=== PATIENT | female | born 1995 | race Caucasian/White ===

== ENCOUNTER 2020-08-13 20:02 | Emergency (ER) | payer OTHER, SELFPAY ==
--- NOTE | 2020-08-13 | XR_ITS ---
EXAMINATION: XR ANKLE, LEFT CLINICAL INFORMATION: Pain status post injury COMPARISON: None TECHNIQUE: AP and lateral views of the left ankle including a portable cross table view FINDINGS: Images slightly limited as the lateral aspect of the distal fibula and hindfoot are outside the [id number]. There are fractures of the distal diaphysis of the tibia and fibula in the tibia there is an oblique fracture beginning 11 cm proximal to the tibial talar joint resulting in approximately 33 degrees of apex medial angulation and with almost 50% shaft's width anterior displacement of the distal fragment. The fracture gap measures up to 1 cm. There is minimal if any overriding of the fracture fragments. There is a small nondisplaced fracture line extending proximally from the level of the dominant oblique fracture. There is a transverse slightly oblique fracture of the distal diaphysis of the fibula with full shaft's width lateral displacement of distal fragment and proximal displacement of the distal fragment resulting in approximately 1.2 cm of overriding. There is also apex medial angulation of approximately 31 degrees. XR/XR ankle LT 2V IMPRESSION: Displaced and angulated distal diaphyseal tibia and fibular fractures
[2020-08-13 20:08] VITALS: BP 152/79; PULSE 69; RESP 16; TEMP 37.2; O2SAT 97; BMI 26.4
--- NOTE | 2020-08-13 20:22 | PC.NURSE ---
PT TAKEN TO US VIA W/C AND HOSPITALIST IN TO SEE PT AND SHE WILL BE ADMITTED FOR IV ANTIBIOTICS.
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
[2020-08-13] MEDS: LORazepam 1 MG TABLET PO (20:47)
--- NOTE | 2020-08-13 21:07 | XR_ITS ---
EXAMINATION: XR ANKLE, LEFT CLINICAL INFORMATION: Post reduction. COMPARISON: 08/13/2020, 8:26 PM TECHNIQUE: 2 views of the left ankle. FINDINGS: Status post reduction. Extremity in an orthopedic dressing/cast. Oblique fracture of the distal tibial diaphysis, with improved alignment with persistent apex medial angulation of approximately 9 degrees. Mild anterior dislocation of the distal fragment, improved from previous. Oblique fracture of the distal fibular diaphysis, with lateral displacement by a full shaft width. Improved angulation with apex medial angulation measuring approximately 9 degrees. XR/XR ankle LT 2V IMPRESSION: Status post reduction. Displaced and angulated distal tibial and fibular diaphyseal fractures, improved from previous.
--- NOTE | 2020-08-13 21:35 | PC.NURSE ---
PT LEFT TIBIA AND FIBULAE FX REDUCED AT BEDSIDE PER DR [facility] WITH SUGAR TONE PLACED TO LEFT LEG.
[2020-08-13] MEDS: Lidocaine HCl 1 % 20 ML VIAL SUBCUT (21:41)
--- NOTE | 2020-08-13 21:41 | PC.NURSE ---
LIDOCAINE GIVEN 20ML IN 4 JOSE OF 5ML EACH EQUALING 20ML
== END 2020-08-13 22:25 | disposition home or self-care (01) ==
PROVIDERS: Emergency Provider Emergency Medicine
DX: S82.202A Unspecified fracture of shaft of left tibia, initial encounter for closed fracture (principal); M25.572 Pain in left ankle and joints of left foot; V03.90XA Pedestrian on foot injured in collision with car, pick-up truck or van, unspecified whether traffic or nontraffic accident, initial encounter; Y92.410 Unspecified street and highway as the place of occurrence of the external cause; Y99.9 Unspecified external cause status
CPT/HCPCS: 29515; 73600; 99284

== ENCOUNTER 2020-08-18 11:14 | Outpatient (REF) | payer OTHER, SELFPAY ==
--- NOTE | 2020-08-18 11:25 | XR_ITS ---
EXAMINATION: XR TIBIA AND FIBULA, LEFT CLINICAL INFORMATION: Left tibia and fibula fractures. COMPARISON: 08/13/2020 left ankle radiographs. TECHNIQUE: AP and lateral views of the left tibia and fibula were obtained. FINDINGS: An overlying cast obscures osseous detail. Again seen are mildly angulated and displaced distal tibial and fibular diaphysis fractures. The left knee and ankle joints are unremarkable. There is moderate soft tissue swelling. XR/XR tibia fibula LT 2V IMPRESSION: Mildly angulated and displaced distal tibial and fibular diaphysis fractures without significant interval change.
== END 2020-08-18 11:15 | disposition home or self-care (01) ==
LOC: HO.HOSX 11:14
PROVIDERS: PCP Internal Medicine; Visit Provider Orthopaedic Surgery
DX: M79.605 Pain in left leg (principal)
CPT/HCPCS: 73590; 99202

== ENCOUNTER 2020-08-23 08:31 | Day surgery (SDC) | payer OTHER, SELFPAY ==
[2020-08-23] VITALS (14 sets, daily range): BP systolic 118–141; BP diastolic 71–91; PULSE 92–144; RESP 16–20; TEMP 36.1–36.9; O2SAT 95–99; BMI 26.4
--- NOTE | 2020-08-23 07:44 | FL_ITS ---
EXAMINATION: XR FLUOROSCOPY WITH IMAGES CLINICAL INFORMATION: Tibial nailing. COMPARISON: None. TECHNIQUE: Fluoroscopy performed by Dr. Quique Radford. Fluoroscopy time: 3.3 minutes DAP: 0.166 mGycm2 Images: 6 FINDINGS: The tibial shaft fracture is reduced with intramedullary eddie and proximal and distal interlocking screws. There is near-anatomic alignment. Hardware is intact. No dislocation. Fibular shaft fracture displacement is improved with only minor lateral displacement distal fragment. FL/FL guidance in OR IMPRESSION: Status post reduction fractures lower leg.
--- NOTE | 2020-08-23 09:02 | P.CONAN_ITS ---
HPI - Anesthesia Eval Consult details Narrative: 25 F p/w distal tibial fracture PMFSH Past Medical History Medical History Anxiety Depression Social History Social History Alcohol intake: never Smoking Status: Never smoker Use of substances other than those prescribed or required for medical reasons: No Advance Directives: No Advance Directives Information Provided: No Current occupational status: employed Current occupation: [employer] - Left handed Meds Allergies Allergy/AdvReac Type Severity Reaction Status Date / Time No Known Allergies Allergy Verified 08/13/20 20:15 [No Known Allergies*] Home Medications Medication Instructions Recorded Confirmed Type acetaminophen 325 mg capsule 325 mg PO QID PRN 08/18/20 History Exam Exam Date and Time: August 23, 2020901 Height,Weight and Vital Signs: Height 5 ft Weight 61.235 kg Airway Mallampati Class: I TM Dist: >3cm Neck ROM: Full Loose/Missing/Broken Teeth: No Heart: RRR Lungs: NL Other: AO Assessment and Plan Assessment Anesthesia Assessment: Anesthesia Plan Discussed Final Anesthetic Review NPO: Yes ASA Class: I Final Preanesthetic Review: No Changes in Pt Med Stat, Meds/Allgs Chart Reviewed, Consent Obtained/Reviewed and Anes Risks/Benef Reviewed Patient Risk: Low Procedure Risk: Low Anesthetic Plan Anesthetic Plan: GA and Regional Block (Distal tibial, possible open fixation, low risk of compartment syndrome) Disposition: Standard PACU
--- NOTE | 2020-08-23 09:08 | MHC.SHP ---
Pre-Procedural Eval Section A The patient is an INPATIENT: No Changes since office visit: No Cold of Flu in the past 2 weeks, No New Medical Problems, No Changes in Medication and No Patient answered all questions The History & Physical has been completed within 30 days and I have reviewed it.: Yes Section B Chief Complaint: Fracture of Left Tibia Allergies: Allergies Allergy/AdvReac Type Severity Reaction Status Date / Time No Known Allergies Allergy Verified 08/13/20 20:15 [No Known Allergies*] Plan I have reviewed the history and physical and performed a pertinent physical examination on my patient. No changes have occurred unless specified.
[2020-08-23] MEDS: ceFAZolin Sodium/Dextrose,Iso 2 GM/50 ML PIGGYBACK IV ×2 (09:55→16:43)
[2020-08-23 10:02] LABS: UPreg QC Valid YES; Urine Pregnancy NEGATIVE (NEGATIVE)
--- NOTE | 2020-08-23 12:10 | PM.PRCOR ---
Brief Operative Note Date of procedure: 08/23/20 Pre-op diagnosis: fractured left distal tibia/ fibula Post-op diagnosis: same Procedure: operative fixation left tibia with locked im nail Anesthesia: regional Surgeon: Quique Radford Estimated blood loss (mL): 50 Pathology: none sent Condition: stable Disposition: PACU
[2020-08-23] MEDS: LORazepam 2 MG/ML VIAL 0.5 MG IVPUSH (12:31)
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
[2020-08-23] MEDS: Acetaminophen 325 MG TABLET 650 MG PO ×2 (16:42→22:24)
[2020-08-23] MEDS: oxyCODONE HCl Immed Release 5 MG TABLET PO (16:42)
[2020-08-23] MEDS: Ketorolac Tromethamine 15 MG/ML VIAL IVPUSH ×2 (16:43→22:24)
[2020-08-23] MEDS: 0.9 % Sodium Chloride Flush 3 ML SYRINGE IVFLUSH (16:44)
[2020-08-23] MEDS: ondansetron HCL 4 MG/2 ML VIAL IVPUSH (17:56)
--- NOTE | 2020-08-23 22:34 | PC.NURSE ---
Late entry: Around 1800 patient was noted to be not feeling well. Pt stated she was nauseous and vomited x 1. Zofran was administered and pt vomited one more time after administration. Pt currently is without nausea and vomiting and stated she is feeling better.
--- NOTE | 2020-08-23 23:02 | PC.NURSE ---
pt voided 600ml. Bladder scan with a result of 167.
[2020-08-24] MEDS: oxyCODONE HCl Immed Release 5 MG TABLET PO ×3 (00:27→12:52)
[2020-08-24] MEDS: 0.9 % Sodium Chloride Flush 3 ML SYRINGE IVFLUSH ×2 (00:28→07:15)
[2020-08-24] MEDS: Acetaminophen 325 MG TABLET 650 MG PO ×2 (04:36→09:59)
[2020-08-24] MEDS: Ketorolac Tromethamine 15 MG/ML VIAL IVPUSH ×2 (04:37→09:58)
[2020-08-24 05:00] VITALS: BP 114/81; PULSE 86; RESP 19; TEMP 36.7; O2SAT 97
[2020-08-24 07:15] VITALS: BP 146/85; PULSE 98; RESP 18; TEMP 36.6; O2SAT 98
[2020-08-24 07:42] VITALS: BP 146/85; PULSE 98; O2SAT 98
--- NOTE | 2020-08-24 09:53 | MHC.CM.PN ---
PATIENT LIVES WITH FAMILY. PRIOR TO INCIDENT, SHE IS FULLY INDEPENDENT WITH ALL ADLS. SHE WILL REQUIRE A NOTE FOR HER PLACE OF WORK PCP IS AT [facility] UPDATE MADE IN [employer]. PATIENT WILL BE DISCHARGED TODAY CASE MANAGEMENT FOLLOWING FOR ANY SERVICES THAT MAY BE NEEDED. FAMILY TO TRANSPORT.
--- NOTE | 2020-08-24 10:11 | MHC.CM.PN ---
PT JASMINA RECOMMENDS HOME WITH SERVICES SECONDARY TO PREFERENCE CONVERSATION, [facility].
--- NOTE | 2020-08-24 11:52 | MHC.CM.PN ---
ASHLEIGH COWAN NOTIFIED THIS ELECTRIC RANGE PREPARER THAT PATIENT IS NOT ACTIVE AT [facility] WITH ANY PROVIDER. FURTHER CASE MANAGEMENT ATTEMPTS TO SECURE CORRECT INFO ARE BEING MADE
--- NOTE | 2020-08-24 12:36 | MHC.CM.PN ---
PATIENT MADE AWARE OF HER TWO OPTIONS: MAKE AN INITIAL VISIT WITH A PCP AT [facility] OR CALL HER INSURANCE COMPANY AND CHANGE PCP TO [facility] PROVIDER. PATIENT DECIDED TO CALL HER INSURANCE AND CHANGE PROVIDERS. ONCE COMPLETED, PATIENT CAN ARRANGE A PCP TELE-HEALTH VISIT, AND [facility] WILL THEN BE ABLE TO PROVIDE SERVICES.
--- NOTE | 2020-08-24 13:01 | MHC.CM.PN ---
PATIENT MADE AWARE THAT ONCE SHE HAS A PCP SECURED WHO WILL WRITE ORDERS FOR [facility], SHE CAN REQUEST A DIRECT REFERRAL TO THE AGENCY.
--- NOTE | 2020-08-24 13:46 | HO.POSTANES ---
Post Anesthesia Evaluation Post Anesthesia Evaluation Vital Signs: Vital Signs Temp Pulse Resp BP Pulse Ox 08/24/20 07:42 98 146/85 H 98 08/24/20 07:15 97.8 F 98 18 146/85 H 98 08/24/20 05:00 98.1 F 86 19 114/81 97 Anesthesia: General Mental Status: Awake Pain Control: Satisfactory Nausea/Vomiting: None Hydration: Adequate Anesthesia-Related Issues: No Anes. Related Issues
== END 2020-08-24 14:10 | disposition home health service (06) ==
LOC: HO.SSS 08:32 → HO.S3 13:55
PROVIDERS: Internal Medicine; PCP Internal Medicine; Visit Provider Orthopaedic Surgery
PROC: (CPT 27759; principal; 2020-08-23 10:30)
DX: S82.202A Unspecified fracture of shaft of left tibia, initial encounter for closed fracture (principal); S82.402A Unspecified fracture of shaft of left fibula, initial encounter for closed fracture; V03.90XA Pedestrian on foot injured in collision with car, pick-up truck or van, unspecified whether traffic or nontraffic accident, initial encounter; Y93.01 Activity, walking, marching and hiking; Y92.9 Unspecified place or not applicable; Y99.8 Other external cause status
CPT/HCPCS: 27759; 81025; 97161; 97165; C1713; C1769; J0131; J0690; J1100; J1170; J1885; J2060; J2250; J2405; J3010

== ENCOUNTER → 2020-09-03 10:32 | Outpatient (BNVA) | payer OTHER, SELFPAY | PROVIDERS: Visit Provider Physician Assistant | DX: S82.209D Unspecified fracture of shaft of unspecified tibia, subsequent encounter for closed fracture with routine healing (principal) | CPT/HCPCS: 99212 ==

== ENCOUNTER 2020-10-06 09:29 | Outpatient (REF) | payer OTHER, SELFPAY ==
--- NOTE | ~2020-10-06 | XR_ITS ---
EXAMINATION: XR TIBIA AND FIBULA, LEFT CLINICAL INFORMATION: Fracture COMPARISON: Previous x-rays most recent 08/18/2020 and 08/23/2020 TECHNIQUE: AP and lateral views of the left tibia and fibula were obtained. FINDINGS: There is an intramedullary eddie and single proximal and 2 distal screws in the left tibia transfixing the left distal tibial shaft fracture. Fracture line is still seen. There is new bony callus formation. Alignment is similar to postoperative exam. There is a fracture of the distal shaft of the fibula. There is slight 3 mm lateral displacement of the distal fibula with respect to the more proximal shaft. This is unchanged. There is new bony callus formation. Soft tissues are unremarkable. XR/XR tibia fibula LT 2V IMPRESSION: ORIF of distal tibial shaft fracture. Healing left distal tibial and fibular shaft fractures.
== END 2020-10-06 09:30 | disposition home or self-care (01) ==
LOC: HO.HOSX 09:29
PROVIDERS: Visit Provider Physician Assistant
DX: S82.209D Unspecified fracture of shaft of unspecified tibia, subsequent encounter for closed fracture with routine healing (principal); X58.XXXD Exposure to other specified factors, subsequent encounter; F41.8 Other specified anxiety disorders
CPT/HCPCS: 73590; 99212

== ENCOUNTER 2020-11-17 07:47 | Outpatient (REF) | payer OTHER, SELFPAY ==
--- NOTE | ~2020-11-17 | XR_ITS ---
EXAMINATION: XR TIBIA AND FIBULA, LEFT CLINICAL INFORMATION: Fracture of the tibial shaft COMPARISON: 10/06/2020 TECHNIQUE: AP and lateral views of the left tibia and fibula were obtained. FINDINGS: There is an intramedullary nail with single proximal and 2 distal interlocking screws transfixing the distal tibial diaphyseal fracture with near-anatomic alignment. Periosteal reaction is seen in the region of the fracture with some osseous bridging. There has been regression of healing since the previous study. Distal fibular diaphyseal fracture is again noted, also with increased callus formation. Alignment at the knee and ankle is maintained. XR/XR tibia fibula LT 2V IMPRESSION: Intact tibial fixation hardware. Progressive healing of the tibial and fibular diaphyseal fractures. Fracture lines remain evident.
== END 2020-11-17 07:48 | disposition home or self-care (01) ==
LOC: HO.HOSX 07:47
PROVIDERS: Visit Provider Physician Assistant
DX: S82.202D Unspecified fracture of shaft of left tibia, subsequent encounter for closed fracture with routine healing (principal)
CPT/HCPCS: 73590; 99212

== ENCOUNTER 2020-12-29 10:00 | Outpatient (RCR) | payer OTHER, SELFPAY ==
--- NOTE | 2020-11-03 16:12 | MHC.PT.EP ---
[facility] [place] Office [place] Office [place] Office [address] Tamiko Jarrell [facility] [phone] F: [phone] F: [phone] F: [phone] F: [phone] Physical Therapy Plan of Care Date of Evaluation: 11/03/20 Date of Surgery: 08/23/20 Diagnosis: Left Tibia ORIF Assessment: Pt is a 25 y/o female s/p ORIF L tibia on 08/23/20 having difficulty with ambulation, standing tolerance/balance, stairs, and ADLs due to increased pain and fear, decreased strength, ROM, muscle flexibility, joint mobility. Pt has not been compliant with WBing instructions from ortho and requires motivation to perform WBAT with boot. Frequency and Duration: The patient will be seen 2x week for 8 weeks Short Term Goals: 1. I HEP in 2 weeks 2. 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 Ambulate without boot and without AD with normalized gait pattern for 100 feet in 8 weeks 2. SLS for 30 seconds on LLE in 8 weeks. 3. Anle AROM WFL in all ranges in 8 weeks Treatment Plan: Modalities to reduce pain, spasms and effusion. Manual therapy to restore motion and function. Therapeutic exercise to improve strength and flexibility. Neuromuscular re-education for posture and balance. Therapeutic activities to return to functional activities of daily living. Electronically signed by: Rosina Hadley Please sign and return to therapist. Thank you for your referral.
--- NOTE | 2021-01-08 09:43 | MHC.PT.DC ---
[facility] [place] Office [place] Office [place] Office [address] 140 [facility] [phone] F: [phone] F: [phone] F: [phone] F: [phone] Physical Therapy Discharge Report Diagnosis: Left Tibia ORIF Date of Surgery: 08/23/20 Date of Evaluation: 11/03/20 Date of Discharge: 01/07/21 Treatments to Date: 13 Cancellations to Date: 0 No Shows to Date: 0 Discharge Status: Discharge Summary: Pt has been progressing and decided to continue with HEP exclusively at this time. Electronically signed by: Kris Castelan PT Please sign and return to therapist. Thank you for your referral.
== END 2021-01-08 09:44 | disposition home or self-care (01) ==
LOC: HO.PTCHIC 10:00
PROVIDERS: PCP Internal Medicine; Visit Provider Physician Assistant
DX: S82.202A Unspecified fracture of shaft of left tibia, initial encounter for closed fracture (principal)
CPT/HCPCS: 97110; 97112; 97116; 97140; 97161; 97530

== ENCOUNTER 2021-01-12 08:18 | Outpatient (REF) | payer OTHER, SELFPAY ==
--- NOTE | ~2021-01-12 | XR_ITS ---
EXAMINATION: XR TIBIA AND FIBULA, LEFT CLINICAL INFORMATION: Fracture COMPARISON: Previous x-rays most recent October 2020 TECHNIQUE: AP and lateral views of the left tibia and fibula were obtained. FINDINGS: There is an intramedullary eddie and single proximal and 2 distal screws transfixing the left distal tibial shaft fracture. Fracture line appears more indistinct with increasing bony callus formation suggestive of healing. There is a distal fibular shaft fracture which appears more distinct and has increasing bony callus formation suggestive of healing as well. Soft tissues are unremarkable. XR/XR tibia fibula LT 2V IMPRESSION: Healing tibia and fibular shaft fractures.
== END 2021-01-12 08:19 | disposition home or self-care (01) ==
LOC: HO.HOSX 08:18
PROVIDERS: Visit Provider Physician Assistant
DX: S82.402A Unspecified fracture of shaft of left fibula, initial encounter for closed fracture (principal); S82.202A Unspecified fracture of shaft of left tibia, initial encounter for closed fracture
CPT/HCPCS: 73590; 99212

== ENCOUNTER → 2022-04-05 09:24 | Outpatient (BNVA) | payer OTHER, SELFPAY | PROVIDERS: PCP Internal Medicine; Visit Provider Dietitian, Registered | DX: E66.9 Obesity, unspecified (principal); Z68.33 Body mass index [BMI] 33.0-33.9, adult; Z71.3 Dietary counseling and surveillance | CPT/HCPCS: 97802 ==

== ENCOUNTER → 2022-12-13 14:57 | Outpatient (BNVA) | payer OTHER, SELFPAY | PROVIDERS: PCP Internal Medicine; Visit Provider Advanced Practice Midwife | DX: Z30.09 Encounter for other general counseling and advice on contraception (principal); Z30.011 Encounter for initial prescription of contraceptive pills | CPT/HCPCS: 81025; 99202 ==

== ENCOUNTER 2023-03-27 13:37 | Outpatient (AMB) | payer OTHER, SELFPAY ==
--- NOTE | 2023-03-27 14:15 | A.OFFVIS_ITS ---
Intake Vital Signs 03/27/23 14:16 Height 5 ft Weight 168 lb BMI 32.8 BP 118/72 Intake Visit Reasons: Nexplanon insertion Night Time Nanny Required: No Information Interpreted: non-clinical & clinical Specialty Sales Consultant: Specialty Sales Consultant Present (Veto) Allergies No Known Allergies [No Known Allergies*] Allergy (Verified 03/27/23 14:33) Medication List - Last Reconciled 03/27/23 by Anika Monteiro CNM No Known Home Meds Is last menstrual period known: Yes Last menstrual period: 03/23/23 Post menopausal: No HPI Nexplanon insertion HPI Details she is here for Nexplanon insertion and she still has lots of questions about how it works so lots of explanation about potential side effects. was reviewed before proceeding to insertion. She is on day 4 of her. It has been hard to schedule. PFSH Medical History Anxiety Depression Surgical History History of bladder surgery History of removal of calculus of renal pelvis through percutaneous nephrostomy History of surgery on lower extremity Family History Other Mental health disorder Substance use disorder Social History Household Members: Family Housing: Apartment Do you presently have visiting nurse or other home services: No Alcohol intake: never Patient Tobacco Use Status: Never used Tobacco e-Cigarette/Vaping Use: Never Used Second Hand Smoke Exposure: No service: No Current occupational status: employed Current occupation: [employer] - Left handed Cognitive needs: No Hearing needs: No Vision needs: Yes (glasses) Female Reproductive History Menstrual Age of Menarche: 10 Date of last menstrual period: 03/23/23 control method: none Total pregnancies: 0 Date of last pap smear: 01/21/19 (negative) Physical Exam Vital Signs: Last Vital Signs BP 118/72 03/27/23 14:16 BMI result Body Mass Index 32.8 Office Procedures Contraception Insert/Removal Details Details: Nexplanon Insertion Procedure The patient was placed in a supine position with her non dominant hand resting under her head. The insertion site was located: 8-10cm from the medial epicondyle . This area was cleansed with an alcohol prep and1.5ml of 2% Lidocaine on a 25 gauge needle and syringe was utilized for adequate anesthesia to the insertion site. After ascertaining adequate anesthesia, the area was prepped with Betadine solution. The Nexplanon device was removed from the manufacturers package and the implant was noted in the trocar canal. The trocar was inserted at a 30 degree angle and then lowered parallel to the skin for insertion into the subcutaneous space with counter traction. Direct pressure was applied to the insertion site for hemostasis, minimal bleeding was observed. Steri strips, Tegaderm covering, gauze pads, and Juan wrap dressing were secured with paper tape. The implant was palpable underneath the skin by myself and the patient. The patient tolerated the procedure well and left the office in good condition. 19639 - Insertion Office Meds Nexplanon Performing Provider: Anika Monteiro CNM Administered by: JUSTYNA Barillas on 03/27/23 15:22 Dose Route Admin Location Lot Number Expiration Date [facility] Petrologist 1 implant subdermal [id number] 03/09/24 41035-098-02 Data Expedition Results AMB Test Urine 2 AMB Test Urine Negative Last Edit by JUSTYNA Barillas on 03/27/23 14:38 Results Reviewed Results Reviewed: Laboratory Last Values [facility] Negative 03/27/23 14:37 Assessment & Plan Assessment & Plan (1) Obesity (BMI 30.0-34.9): Comment: BMI 33.2 on 04/05/22 Code(s): E66.9 - Obesity, unspecified (2) Insertion of Nexplanon: Code(s): Z30.017 - Encounter for initial prescription of implantable subdermal contraceptive (3) control counseling: Code(s): Z30.09 - Encounter for other general counseling and advice on contraception Plan detailed discussion about what women have told me about their experience on the Nexplanon ranging from weight gain mood changes depression bleeding pattern changes ranging from constant bleeding to no periods, and also potential changes in .libido. 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 insertion went smoothly and I reviewed with her what to call for if there is any sign of bleeding or infection or expulsion. she is to keep the Tegaderm on for at least 3 days and the pressure dressing on for 2 -3 hours she needs an annual exam so it be good to see her in 2-3 months to see how she is doing with it. Orders: Orders AMB Nexplanon/Implanon Insertion/Removal - Practice Supplied Today Z30.017 - Encounter for initial prescription of implantable subdermal contraceptive AMB HCG Urine Test Today Z32.02 - Encounter for test, result negative Coding Level of Care Code Est Pt Level 3 (12852) Diagnoses Obesity (BMI 30.0-34.9) E66.9 Insertion of Nexplanon Z30.017 control counseling Z30.09 CPT Codes Details - Contraception: 67827 - Insertion ([id number])
[2023-03-27 14:16] VITALS: BP 118/72; BMI 32.8
== END 2023-03-27 15:23 | disposition home or self-care (01) ==
LOC: HO.HWS 13:37
PROVIDERS: PCP Internal Medicine; Visit Provider Advanced Practice Midwife
DX: E66.9 Obesity, unspecified (principal); Z30.017 Encounter for initial prescription of implantable subdermal contraceptive; Z30.09 Encounter for other general counseling and advice on contraception; Z32.02 Encounter for pregnancy test, result negative
CPT/HCPCS: 11981

== ENCOUNTER → 2023-03-27 13:37 | Outpatient (BNVA) | payer OTHER, SELFPAY | PROVIDERS: PCP Internal Medicine; Visit Provider Advanced Practice Midwife | DX: Z30.017 Encounter for initial prescription of implantable subdermal contraceptive (principal); E66.9 Obesity, unspecified; Z68.32 Body mass index [BMI] 32.0-32.9, adult; Z32.02 Encounter for pregnancy test, result negative | CPT/HCPCS: 11981; 81025; J7307 ==